=== PATIENT | female | born 1960 | race Caucasian/White ===

== ENCOUNTER 2018-12-07 19:31 | Emergency (ER) | payer OTHER ==
[~2018-12-07] VITALS: Ht 162.6 cm; Wt 56.7 kg
[2018-12-07 19:53] VITALS: Ht 162.6 cm; Wt 56.7 kg
[2018-12-07 20:33] LABS: microscopic required? NO
[2018-12-07 20:45] LABS: urine erythrocyte NEGATIVE (NEGATIVE)
[2018-12-07 20:50] LABS: BASOPHIL % 0 % (0-2); PLATELET COUNT 165 x10^3mcL (130-400)
[2018-12-07 21:24] LABS: ALKALINE PHOSPHATASE 71 U/L (46-116); ALT/SGPT 16 U/L (14-59); AST/SGOT 15 U/L (15-37); BILIRUBIN TOTAL 0.2 mg/dL (0.20-1.00); CALCIUM 8.3 mg/dL (8.5-10.1); CARBON DIOXIDE 24.6 mmol/L (21-32); CHLORIDE SERUM 103 mmol/L (98-107); CREATININE SERUM 0.8 mg/dL (0.6-1.0); GFR1 > 60 mL/min; GLUCOSE SERUM 97 mg/dL (74-106); SODIUM SERUM 137 mmol/L (136-145)
[2018-12-07 21:31] LABS: TOTAL PROTEIN, SERUM 5.6 g/dL (6.4-8.2)
[2018-12-07 21:56] VITALS: BP 101/71
== END 2018-12-07 21:58 | disposition home or self-care (01) ==
LOC: ED 19:31
PROVIDERS: Emergency Medicine
DX: B34.9 Viral infection, unspecified (principal); F17.210 Nicotine dependence, cigarettes, uncomplicated; Z88.2 Allergy status to sulfonamides; Z88.6 Allergy status to analgesic agent; Z87.442 Personal history of urinary calculi
CPT/HCPCS: 87804; J7030